=== PATIENT | female | born 1995 | race Caucasian/White ===

== ENCOUNTER → 2024-08-17 13:47 | Outpatient (CLI) | payer BC, SELFPAY ==
[2024-08-17 14:57] LABS: Natera Collection Specimen Collected
== END ==
PROVIDERS: Referring Provider Obstetrics & Gynecology; Visit Provider Obstetrics & Gynecology
DX: Z34.01 Encounter for supervision of normal first pregnancy, first trimester (principal)
CPT/HCPCS: 36415; 86850; 86900; 86901

== ENCOUNTER → 2024-09-30 14:40 | Outpatient (CLI) | payer BC, SELFPAY ==
[2024-09-30 15:10] LABS: Add Manual Diff / Slide Review NO; Hematocrit 39.3 % (36-46); Hemoglobin 13.8 g/dL (12.0-16.0); Lymphocytes Absolute Auto 1800 /uL (1100-4500); Mean Corpuscular HGB Conc 35.2 % (30-36); Mean Corpuscular Hemoglobin 30.8 PG (26-34); Mean Corpuscular Volume 87.6 fL (80-100); Platelet Count 205 X10^3/uL (150-400)
== END ==
PROVIDERS: Referring Provider Student in an Organized Health Care Education/Training Program; Visit Provider Student in an Organized Health Care Education/Training Program
DX: Z34.00 Encounter for supervision of normal first pregnancy, unspecified trimester (principal)
CPT/HCPCS: 36415; 85025

== ENCOUNTER → 2024-12-06 11:10 | Outpatient (CLI) | payer BC, SELFPAY ==
[2024-12-06 13:46] LABS: Hematocrit 40.8 % (36-46); Hemoglobin 13.9 g/dL (12.0-16.0)
[2024-12-06 14:11] LABS: GTT (PREG) 1 Hour PP 50gm Dose 71 mg/dL (76-139)
== END ==
PROVIDERS: Referring Provider Obstetrics & Gynecology; Visit Provider Obstetrics & Gynecology
DX: Z34.02 Encounter for supervision of normal first pregnancy, second trimester (principal)
CPT/HCPCS: 36415; 82950; 85014; 85018

== ENCOUNTER → 2025-01-11 09:49 | Outpatient (CLI) | payer BC, SELFPAY | PROVIDERS: Visit Provider Obstetrics & Gynecology | DX: R30.0 Dysuria (principal); R39.15 Urgency of urination; N89.8 Other specified noninflammatory disorders of vagina; R10.20 Pelvic and perineal pain unspecified side | CPT/HCPCS: 81514; 87086 ==

== ENCOUNTER → 2025-02-09 08:32 | Outpatient (CLI) | payer BC, SELFPAY ==
[2025-02-10 11:00] LABS: Strep Grp B PCR NEG for Grp B Strep
== END ==
PROVIDERS: Visit Provider Obstetrics & Gynecology
DX: Z34.03 Encounter for supervision of normal first pregnancy, third trimester (principal); Z3A.35 35 weeks gestation of pregnancy
CPT/HCPCS: 87653

== ENCOUNTER 2025-03-05 08:16 | Inpatient (IN) | payer BC, SELFPAY ==
[2025-03-05 10:06] VITALS: BP 117/69
[2025-03-05 10:07] LABS: Add Manual Diff / Slide Review NO; Hematocrit 42.0 % (36-46); Hemoglobin 14.3 g/dL (12.0-16.0); Lymphocytes Absolute Auto 1600 /uL (1100-4500); Mean Corpuscular HGB Conc 33.9 % (30-36); Mean Corpuscular Hemoglobin 29.4 PG (26-34); Mean Corpuscular Volume 86.8 fL (80-100); Platelet Count 140 X10^3/uL (150-400)
--- NOTE | 2025-03-05 16:00 | PM.AN.REGBLK ---
Regional Block Pre-procedure Procedure: Continuous Lumbar Epidural for L&D Attending OB provider: [place] PMH/ROS narrative: healthy, presents in spontaneous labor, requests CSE for labor pain. PSH/Anesthesia history narrative: See pre-anesthesia eval form. Exam narrative: See pre-anesthesia eval form. ASA Class: II Labs: Hct 42.0 % (36-46) 03/05/25 09:15 Plt Count 140 X10^3/uL (150-400) L 03/05/25 09:15 Medications: Current Medications Generic Name Dose Route Start Last Admin Trade Name Freq PRN Reason Stop Dose Admin Carboprost Tromethamine 250 mcg 03/05/25 09:59 Carboprost 250 Mcg/Ml Ampul IM Q90M PRN Bleeding Fentanyl 50 mcg 03/05/25 09:59 Fentanyl 100 Mcg/2 Ml Inj IV Q1H PRN Pain, Moderate (4-6) Oxytocin/Lactated Ringer's 30 unit in 500 mls @ 200 mls/hr 03/05/25 09:59 Oxytocin Premix IV CONT PRN Bleeding Protocol Tranexamic Acid 1,000 mg/ 100 mls @ 600 mls/hr 03/05/25 09:59 Sodium Chloride IV NOW PRN Bleeding Oxytocin/Lactated Ringer's 30 unit in 500 mls @ 2 mls/hr 03/05/25 10:00 Oxytocin Premix IV TITRATE SUSANA Protocol 2 MILLIUNIT/MIN Lactated Ringer's 1,000 mls @ 100 mls/hr 03/05/25 10:00 Lactated Ringers IV 03/05/25 19:59 CONT SUSANA Lidocaine HCl 20 ml 03/05/25 09:59 Lidocaine 1% 20 Ml INJ INTRA-OP PRN Post Delivery Methylergonovine Maleate 0.2 mg 03/05/25 09:59 Methylergonovine 0.2 Mg Tablet PO Q6HR PRN Heavy Bleeding Methylergonovine Maleate 0.2 mg 03/05/25 09:59 Methylergonovine 0.2 Mg/Ml Vial IM NOW PRN Bleeding Mineral Oil 30 ml 03/05/25 09:59 Mineral Oil 30 Ml Udc TOP PRN PRN Version Misoprostol 800 mcg 03/05/25 09:59 Misoprostol 200 Mcg Tablet CA NOW PRN Bleeding Misoprostol 400 mcg 03/05/25 09:59 Misoprostol 200 Mcg Tablet SL NOW PRN Bleeding Naloxone HCl 0.2 mg 03/05/25 09:59 Naloxone 0.4 Mg/Ml Vial IV Q2MIN PRN Opiate Reversal Ondansetron HCl 4 mg 03/05/25 09:59 Ondansetron 4 Mg/2 Ml Inj IV Q4HR PRN Nausea And Vomiting Oxytocin 10 unit 03/05/25 09:59 Oxytocin 10 Unit/Ml Vial IM NOW PRN Bleeding Allergies: Allergies Allergy/AdvReac Type Severity Reaction Status Date / Time No Known Drug Allergies Allergy Unverified 02/21/25 12:44 Procedure Insertion date: 03/05/25 Insertion time: 14:39 Prep/Local: 1% lidocaine (5mL and CHG to back for skin prep) Interspace: L 3/4 Patient position: sitting Needle: 18 gauge BackTypetead ( spinal needle for CSE w/ 1mL 0.25% MPF bupivacaine) Loss of resistance with: saline DEB at (cm): 5 Catheter placed at SKIN (cm): 12 Catheter in SPACE (cm): 7 Insertion: Yes CSF, Yes Blood, No Paresthesia with insertion, No Paresthesia with injection and No Test dose reaction Initial Medications TEST DOSE time: 14:40 TEST DOSE: 1.5% lidocaine with epinephrine 1:200k (mL): 3 BOLUS DOSE time: 14:45 BOLUS DOSE (mL): 5 BOLUS DOSE med: other (2% lido) Infusion INFUSION: 0.125% bupivacaine and with fentanyl 2 mcg/mL Initial rate (mL/hr): 8 Post-procedure Anesthesia date START: 03/05/25 Anesthesia time START: 14:30 Anesthesia date END: 03/05/25 Anesthesia time END: 17:23 Post-procedure Anesthesia Assessment: Yes CV function: HR/BP stable, Yes Resp function: RR/sat/airway adequate, Yes Post-op hydration adequate, Yes Pain control adequate, Yes Nausea & vomiting absent, Yes Temperature > 36 C, Yes Mental status appropriate and No Anesthesia complications
--- NOTE | 2025-03-05 17:49 | P.HPOB_ITS ---
OB HPI Date/Time Date of admission: 03/05/25 Date Patient Seen: 03/05/25 Time Patient Seen: 15:00 History of Present Condition Chief complaint: Labor BENJAMÍN Calculator 2 Estimated Delivery Date Method Current WG Current Estimate 03/15/25 Ultrasound #1 38w 4d Other Estimates 03/07/25 LMP (Certain) 39w 5d : 1 Narrative: Pt presents to birthing center with c/o painful contractions onset at 0230. Denies VB, LOF, dysuria. +FM. course noted for unknown maternal infectious serologies (pt requested minimal labs due to financial cost), low risk without concern for HIV/RPR/HCV. SVE 6cm on arrival care: good care Dating criteria OB: based on 1st trimester US only Ultrasounds: normal 1st trimester US and normal mid trimester US Obstetrical complications: none Medical complications OB: none Preadmission Labs Last OB Lab Results: 2 Blood Type O Positive Today, 09:15 Antibody Screen Negative Today, 09:15 Hct, (36-46) 42.0 % Today, 09:15 Hgb, (12.0-16.0) 14.3 g/dL Today, 09:15 Glucose 1 Hr 50 gm, (76-139) 71 mg/dL L 12/06/24, 1 2:32 Group B Strep (PCR) Neg for grp b strep 02/09/25, 10:00 -: Chlamydia screen: negative and Gonorrhea screen: negative -: PAP smear: Normal Genetic Screens: Cell-free DNA: Normal and Alpha-fetoprotein: Normal Evaluation Evaluation Baseline heart rate: 140 Variability: Moderate (6-25) monitor accelerations: Present Monitor Decelerations: Absent Contraction Frequency (minutes): 5 Uterine Contraction Intensity: Moderate Category of Tracing: Reactive Status: Category l Dilation (cm): 6 Dilation: >/=5 cm Effacement: 60-70% station: -1 Position of cervix: mid Consistency: soft Culp score: 10 Non-invasive Membranes Rupture Test: negative [facility] Surgical History (Updated 07/21/24 @ 13:34 by Nelida Hoff, LIDYA) History of oral surgery [place] teeth removed Family History (Updated 07/21/24 @ 13:42 by Nelida Hoff RN) Grandmother Brain cancer Grandmother Pancreatic cancer Hypertension Grandfather Lewy body dementia Uncle Lung cancer Smoker Aunt Endometriosis Grandfather Hypertension Family/Other Endometriosis Social History marital status: number of children: 1 household members: spouse lives independently: Yes caregiver/support person: No housing: house pets and animals: Yes (dog) education level: college (bachelor's degree) 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, 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) current occupational exposures/hazards: No special tita needs: No travel history: recent ([place]) seatbelt use: always water heater temp set < 120 deg: Yes working smoke detector in home: Yes fire extinguisher in home: Yes carbon monox detector in home: Yes firearms in home: No do you feel safe at home: Yes second hand exposure: No alcohol intake: never substance use type: does not use during the past year weight has: remained stable well-balanced diet: rarely or never daily servings fruits/ve-1 (1-2) caffeine: Yes (usually single cup coffee, stopped since becoming ) Type(s) of exercise: walking frequency: 3-4 times per week Meds Home Medications and Allergies Home Medications ?Medication ?Instructions ?Recorded ?Confirmed ?Type vitamin-ferrous sulfate tab PO 07/21/2402/21 History 27 mg iron-folic acid 0.8 mg tablet sumatriptan succinate 50 mg tablet See Rx Instructions PO .COMPLEX 07/21/24 02/21/25 History breast pump #1 ea 10/28/24 02/21/25 Rx RSVPreF3 antigen-AS01E 0.5 ml IM ONCE #1 ea 12/06/2 5 02/21/25 Rx adjuvant(PF) 120 mcg/0.5 mL IM suspension, kit fluconazole 150 mg tablet 150 mg PO ONCE #2 tabs 01/2402/21/25 Rx Allergies Allergy/AdvReac Type Severity Reaction Status Date / Time No Known Drug Allergies Allergy Unverified 02/21/25 12:44 Review of Systems Review of Systems ROS: Yes All systems reviewed with the patient and are negative except as otherwise documented OB Exam Narrative Exam Narrative: maternal VSS/afebrile, reviewed in OBIX Resp Effort & Inspection: normal respiratory effort and able to speak in complete sentences Cardio Rate: regular rate Extremities Lower extremity: Yes normal to inspection GI Palpation: Yes soft Other: gravid, bean cephalic 7.5# External Female Exam: Yes normal external appearance Objective Labs 03/05/25 09:15 Labs: Laboratory Results - last 24 hr 03/05/25 09:15 WBC 12.6 H RBC 4.84 Hgb 14.3 Hct 42.0 MCV 86.8 MCH 29.4 MCHC 33.9 RDW 14.6 Plt Count 140 L Neut % (Auto) 80.0 H Lymph % (Auto) 12.5 L [place] % (Auto) 7.1 Eos % (Auto) 0.3 L Baso % (Auto) 0.1 Neut # (Auto) 61727 H Lymph # (Auto) 1600 [place] # (Auto) 900 Eos # (Auto) 0 Baso # (Auto) 0 Blood Type O Positive Antibody Screen Negative Assessment and Plan Assessment and Plan Assessment and Plan narrative: 29yo G1 at 38w4d by first trimester US presents in active term labor Active term labor Cat 1 tracing, maternal VSS/afebrile GBS negative unknown maternal infectious serologies, low risk continue toco, ok for intermittent monitoring PRN anticipate Time-Based Coding :: [TOTAL MINUTES] spent with patient and on the chart (including review of chart, obtaining history, exam, reviewing outside data, placing orders, documenting exam and treatment plan, and counseling patient) on [DATE].
--- NOTE | 2025-03-05 17:53 | PM.OBPRVD ---
Labor & Delivery Delivery date: 03/05/25 Delivery Time: 17:23 Intrapartal Events: None Cervical ripening method: none Induction method: none Episiotomy description: Right Mediolateral L&D Laceration Description: Perineal - 2nd Degree Delivery repair: vicryl Estimated blood loss (mL): 250 Anesthesia Type: Epidural Complications: none Narrative: pt in dorsal lithotomy position, C/C/+2. Unable to feel contractions. With guided expulsive efforts slow appropriate descent to +3-4 at which time the only obstructing factor was a tight band of perineal muscle. Reassuring surveillance throughout second stage. Patient counseled on and consents to episiotomy to facilitate deliver. A 0.5cm R mediolateral episiotomy was made using the lam scissor. With next contraction spontaneous delivery of head in HARRY position with immediate restitution to maternal right. Nuchal cord x2 reduced. Anterior shoulder delivered with gentle downward traction followed by rapid delivery of posterior shoulder and body. was placed on maternal abdomen. Placenta delivered spontaneously, inspected and noted to be intact. Fundus firm below umbilicus. Perineal exam revealed deep 2nd degree perineal laceration without involvement of the external anal sphincter; repaired with 3-0 vicryl in standard fashion. All counts correct x2, lochia appropriate. No complications. [place] Baby 1: gender: Female Presentation: vertex Position: Left Occiput Anterior Placenta delivery description: Spontaneous Cord Vessel Description: 3 Vessels, Nuchal Cord (x2) and Reduced score (1 min): 8 score (5 min): 9 Plan for aftercare: Routine care
[2025-03-05] MEDS: IBUPROFEN 600 MG TABLET PO (22:11)
[2025-03-06] MEDS: IBUPROFEN 600 MG TABLET PO ×3 (04:20→16:09)
[2025-03-06 06:17] LABS: Hematocrit 35.8 % (36-46); Hemoglobin 12.1 g/dL (12.0-16.0)
[2025-03-06] MEDS: ACETAMINOPHEN 325 MG TABLET 650 MG PO (08:58)
--- OUTSIDE RECORDS SUMMARY | 2025-03-06 09:29 | XMS_ITS | Clinical Summary ---
Author Organization [facility] Address [address] [place] [address] Care Team Providers Care Procedures Rn Name Role Phone Pcp, None Selected Primary Care Provider Unavail able Allergies No known active allergies Medications PNV no.95/ferrous fum/folic ac ( ORAL) Take 1 tablet by mouth daily Active Family History Medical History Relation Comments Cancer Maternal Grandmother Cancer Mother's Brother Cancer Paternal Grandmother Relation Status Comments Maternal Grandmother Mother's Brother Paternal Grandmother Social History Tobacco Use Types Packs/Day Years Used Date Smoking Tobacco: Never Smokeless Tobacco: Never Tobacco Cessation:Counseling Given: Not Answered Comments:None Alcohol Use Standard Drinks/Week Comments Never 0 (1 standard drink = 0.6 oz pur e alcohol) Comments Yes Sex and Gender Information Value Date Recorded Sex Assigned at Not on file Legal Sex Female 2:51 PM PDT Gender Identity Not on file Sexual Orientation Not on file Last Filed Vital Signs Vital Sign Reading Time Taken Comments Blood Pressure 121/81 07/14/2024 9:19 AM PDT Pulse 105 07/14/2024 9:19 AM PDT Temperature - - Respiratory Rate - - Oxygen Saturation - - Inhaled Oxygen Concentration - - Weight 54.9 kg (121 lb) 07/14/2024 9:19 AM PDT Height 161.2 cm (5' 3.47) 07/14/2024 9:19 AM PD T Body Mass Index 21.12 07/14/2024 9:19 AM PDT Plan of Treatment Health Maintenance Due Date Last Done Comments MMR Vaccines (1 of 1 - Standard series) 1994 Depression Screening (PHQ-2) 2005 Varicella Vaccines (1 of 2 - 13+ 2-dose series) 2006 DTaP,Tdap,and Td Vaccines (1 - Tdap) 2012 Hepatitis B Vaccines (1 of 3 - 19+ 3-dose series) 2012 HPV Vaccines (1 - 3-dose SCDM series) 2020 Cervical Cancer Screening Combined Topic 05/08/2023 Cervical Cancer-Pap screening 05/08/2023 HPV/Cotest 05/08/2023 COVID-19 Vaccine (2024- season) 2024 11/16/2023, 11/30/2022, 11/15/2021, Additional history exists Influenza Vaccine (#1) 2024 01/22/2024, 2021 RSV Patients Over 60 years OR qualifying ( Patients) (1 - 1-dose 75+ series) 2068 HM Pneumococcal Combined Age 0-49 Aged Out No longer eligible based on patient's age to complete this topic Hepatitis A Vaccines Aged Out No long er eligible based on patient's age to complete this topic IPV Vaccines Aged Out No longer eligi ble based on patient's age to complete this topic [place] [address] [address] [place] [address] OUT OF STATE [employer] OUT OF STATE Care Teams Procedures Rn Relationship Specialty Start Date End Date Pcp, None Selected PCP - General Internal Medicine 07/07/24
--- NOTE | 2025-03-06 09:57 | PM.OBPN.1 ---
Subjective - OB Subjective Patient comments: no complaints [place] baby status: doing well [place] feeding status: exclusively breast feeding Narrative: pt resting comfortably in bed with partner and , without difficulty. Voiding and ambulating independently, denies n/v/dysuria. NAEON per RN Date Patient Seen: 03/06/25 Time Patient Seen: 09:15 Exam Vital Signs (past 8 hours): maternal VSS/afebrile, reviewed in OBIX Const General: cooperative, healthy appearing and comfortable Nutritional Appearance: average body habitus Orientation: alert, awake and oriented x3 Limitations: mental status not altered Resp Effort & Inspection: normal respiratory effort and able to speak in complete sentences Cardio Pulses: normal peripheral pulses GI Palpation: soft Other: fundus firm << umb Other: deferred Back/Spine/Pelvis Back: normal to inspection Skin General: no rashes or lesions noted Neuro General: patient alert, patient awake and patient oriented x3 Extrem General: normal to inspection Psych Mental Status: mental status grossly normal Judgment: judgment good Objective Labs 03/06/25 05:55 Labs: Laboratory Results - last 24 hr 03/05/25 03/06/25 09:15 05:55 WBC 12.6 H RBC 4.84 Hgb 14.3 12.1 Hct 42.0 35.8 L MCV 86.8 MCH 29.4 MCHC 33.9 RDW 14.6 Plt Count 140 L Neut % (Auto) 80.0 H Lymph % (Auto) 12.5 L [place] % (Auto) 7.1 Eos % (Auto) 0.3 L Baso % (Auto) 0.1 Neut # (Auto) 12041 H Lymph # (Auto) 1600 [place] # (Auto) 900 Eos # (Auto) 0 Baso # (Auto) 0 Blood Type O Positive Antibody Screen Negative Assessment & Plan Plan day: 1 plan OB: routine care Comments: routine care consult PRN anticipate dc to home later today vs PPD2 pending clearance per peds Time-Based Coding :: [TOTAL MINUTES] spent with patient and on the chart (including review of chart, obtaining history, exam, reviewing outside data, placing orders, documenting exam and treatment plan, and counseling patient) on [DATE].
--- NOTE | 2025-03-06 13:23 | P.DS_ITS ---
Discharge Providers Provider Date of admission: 03/05/25 08:16 Discharge Date: 03/06/25 Primary care physician: Annie Mendez PA-C Consults: 03/05/25 09:59 Consult to Anesthesiology Urgent Comment: Consulting Provider: Yolie Jones Reason for consultation: Epidural Has provider been notified: Yes 03/05/25 19:26 Consult to Director Corporate Routine Comment: Discharge provider: [place] MD Summary Hospital Course Date Patient Seen: 03/06/25 Time Patient Seen: 13:20 Diagnoses: term labor Time Spent with Patient Time attestation: Total time spent providing and/or coordinating discharge services: Objective Labs 03/06/25 05:55 Labs: Laboratory Results - last 24 hr 03/06/25 05:55 Hgb 12.1 Hct 35.8 L Discharge Plan Discharge Plan Patient Disposition: Home Discharge orders & Medications Prescriptions: New ibuprofen 800 mg tablet 800 mg PO Q8H PRN (Reason: pain) Qty: 20 0RF acetaminophen 500 mg tablet 500 mg PO Q6H PRN (Reason: pain) Qty: 30 0RF Continued vit-ferrous sulfat-FA 27 mg iron- 0.8 mg tablet PO sumatriptan succinate 50 mg tablet See Rx Instructions PO .COMPLEX Rx Instructions: take 1 tab at onset of headache; if no relief may repeat 1 tab after at least 2 hrs; max = 4 tabs/24 hr PO Discontinued (DME) breast pump Device See Rx Instructions .Route Qty: 1 0RF Rx Instructions: Double electric breast pump RSVPreF3 antigen-AS01E (PF) 120 mcg/0.5 mL suspension for reconstitution 0.5 ml IM ONCE Qty: 1 0RF fluconazole 150 mg tablet 150 mg PO ONCE Qty: 2 0RF Rx Instructions: as a single dose, may repeat second dose in 3 days if still having symptoms Follow up/Referrals: Annie Mendez PA-C [Primary Care Provider, Family Practice] Diet/Activity/Treatments Diet: Diet as Tolerated and Regular Visit Report/Discharge Packet Stand Alone Forms: [employer] [place] [employer], Patient Portal/API, Stroke Signs & Symptoms, Influenza Vaccine Info, Notice of Privacy Practices, Inpatient vs Outpatient, Pneumococcal Vaccine Info, Pt. Rights & Responsibilities Discharge Data Primary Care Provider: Annie Mendez
[2025-03-06] MEDS: LANOLIN OINT 7 GM 1 APPLIC TOP (16:09)
== END 2025-03-06 21:46 | disposition home or self-care (01) | DRG 807 ==
PROVIDERS: Admitting Provider Obstetrics & Gynecology; Referring Provider Obstetrics & Gynecology; Visit Provider Obstetrics & Gynecology
DX: O80 Encounter for full-term uncomplicated delivery (principal); Z37.0 Single live birth; Z3A.38 38 weeks gestation of pregnancy
CPT/HCPCS: 36415; 59050; 85014; 85018; 85025; 86850; 86900; 86901; G0379